=== PATIENT | male | born 1975 | race Caucasian/White ===

== ENCOUNTER → 2017-03-23 | Outpatient (CLI) | payer MEDICARE, OTHER ==
--- NOTE | 2017-03-23 11:52 | MR ---
EXAMINATION TYPE: MR sacroiliac joints wo con DATE OF EXAM: 03/23/2017 COMPARISON: CT abdomen and pelvis July 10, 2011 HISTORY: sacroiliitis per order, lower lumbar pain into right buttocks and thigh per patient. Standard multiplanar, multisequence MRI departmental protocol Multiplanar, multisequence images of the pelvis focusing on the sacroiliac joints were acquired. FINDINGS: Sacroiliac joints appear symmetric and felt within normal limits. There is no suspicious wi dening seen. There is no suspicious edema within or adjacent to the joints identified. Visualized osseous structures including sacrum are unremarkable. Visualized bladder is within normal limits. There is no suspicious bowel dilatation. There is no concerning pelvic fluid collection. Semi nal vesicles are unremarkable. Visualized portion of prostate is unremarkable. No concerning pelvic a denopathy is seen. IMPRESSION: Sacroiliac joints are within normal limits. Unremarkable study.
== END | disposition home or self-care (01) ==
LOC: RADMRIMAIN 10:46
PROVIDERS: ATTEND Internal Medicine Rheumatology
DX: M46.1 Sacroiliitis, not elsewhere classified (principal)
CPT/HCPCS: 72195

== ENCOUNTER → 2019-05-13 | Outpatient (CLI) | payer MEDICARE, OTHER ==
--- NOTE | 2019-05-13 11:59 | XR ---
EXAMINATION TYPE: XR chest 2V DATE OF EXAM: 05/13/2019 COMPARISON: NONE HISTORY: 10/07/2009 TECHNIQUE: Frontal and lateral views of the chest are obtained. FINDINGS: Slitlike atelectasis is seen within the left midlung and at the left costophrenic angle. Th is is new from the prior. There is no focal air space opacity, pleural effusion, or pneumothorax seen . There is prominence of the ascending thoracic aorta on the lateral view. The cardiac silhouette siz e is within normal limits. The osseous structures are intact. IMPRESSION: 1. New multifocal left midlung and costophrenic angle subsegmental atelectasis. No new focal consolid ation to suggest pneumonia. 2. Prominence of the ascending thoracic aorta could relate could be assessed with CTA thorax.
== END ==
LOC: PROCWHC3 11:26
PROVIDERS: ATTEND Family Medicine
DX: J98.11 Atelectasis (principal); J00 Acute nasopharyngitis [common cold]; R50.9 Fever, unspecified; R05 Cough
CPT/HCPCS: 71046; 87502

== ENCOUNTER → 2019-06-01 | Outpatient (CLI) | payer MEDICARE, OTHER ==
--- NOTE | 2019-06-01 10:03 | US ---
EXAMINATION TYPE: US kidneys/renal and bladder DATE OF EXAM: 06/01/2019 COMPARISON: NONE CLINICAL HISTORY: R31.29 MICROSCOPIC HEMATURIA. Microscopic hematuria, 1 episode right flank pain cou ple days ago, history of kidney stones. EXAM MEASUREMENTS: Right Kidney: 11.1 x 5.3 x 5.2 cm Left Kidney: 10.2 x 4.9 x 5.2 cm Right Kidney: no hydronephrosis or masses seen Left Kidney: no hydronephrosis or masses seen Bladder: not fully distended Bilateral Jets seen: no There is no evidence for hydronephrosis at this point in time. No nephrolithiasis is seen. No carolyn s are identified. The urinary bladder is anechoic. Bilateral ureteral jets are not seen. IMPRESSION: No hydronephrosis nor nephrolithiasis. Unremarkable renal ultrasound.
== END | disposition home or self-care (01) ==
LOC: RADUSWWP 09:31
PROVIDERS: ATTEND Family Medicine
DX: R31.29 Other microscopic hematuria (principal)
CPT/HCPCS: 76770

== ENCOUNTER → 2019-06-03 | Outpatient (CLI) | payer MEDICARE, OTHER ==
--- NOTE | 2019-06-03 15:39 | CT ---
CT CHEST FOR PULMONARY EMBOLISM. EXAMINATION TYPE: CT angio chest DATE OF EXAM: 06/03/2019 INDICATION: Abnormal cxr. CT DLP: 533.2 mGycm, Automated exposure control for dose reduction was used. CONTRAST: Patient injected with 100 mL of Isovue 370. COMPARISON: None TECHNIQUE: CT of the chest is performed on a spiral scan at 2 mm thick sections. Study is performed without and then with intravenous contrast. This will limit additional portions of the evaluation. 3-D MIP images reconstructed by the technologist are reviewed on the computer in the coronal and sagi ttal planes. FINDINGS: No persistent filling defects are evident to suggest an acute pulmonary embolism. No mediastinal or hilar adenopathy enlarged by CT criteria is evident. The ascending aorta diameter at the level of the main pulmonary artery is 3.2 cm. The main pulmonary artery diameter at the bifur cation is 2.7 cm. There is a 0.2 cm nodule within the lower right middle lobe. Series [address] section through the upper abdomen. There is mild fatty infiltration to the liver. IMPRESSIONS: 1. Punctate nodule right middle lobe. Follow-up exam in 3-6 months recommended.
== END | disposition home or self-care (01) ==
LOC: RADCTMAIN 09:45
PROVIDERS: ATTEND Family Medicine
DX: R91.1 Solitary pulmonary nodule (principal)
CPT/HCPCS: 71275; Q9967

== ENCOUNTER 2019-08-23 10:56 | Day surgery (SDC) | payer MEDICARE, OTHER ==
[2019-08-19 11:13] VITALS: BMI 25.5
[~2019-08-23 10:56] MED LIST: SODIUM CHLORIDE 0.9% 1,000 ML IV SCH
[2019-08-23 11:33] VITALS: RESP 16; TEMP 98.2
[2019-08-23 14:53] VITALS: BP 118/72; PULSE 60
--- NOTE | 2019-08-23 15:23 | P.PCN ---
Preoperative Diagnosis: Diagnosis: Presyncope Procedure: Tilt table test Baseline 12-lead EKG shows sinus mechanism, normal SC, narrow QRS, T wave inversions in inferior and lateral precordial leads normal QT interval, no delta Waves No Epsilon Waves Baseline blood pressure 116 over 73 mmHg, Baseline heart rate 77 bpm. Patient was tilted upright at a 70 angle as per protocol. Within the first 10 minutes of being tilted upright there is a rise in heart rate to the 100s. Heart rate remained elevated while the patient was upright, maximum heart rate 112 bpm, blood pressure remained stable throughout the procedure. The patient did not have any complaints besides being uncomfortable. No complaints of dizziness noted. At the end of the procedure the patient was laid flat. Impression Twelve-lead EKG showing T-wave inversions inferiorly and in the lateral precordial leads Postural orthostatic tachycardia syndrome No evidence for neurocardiogenic syncope
== END 2019-08-23 14:35 | disposition home or self-care (01) ==
LOC: CATHEP 10:56
PROVIDERS: ATTEND Internal Medicine Clinical Cardiac Electrophysiology
DX: I49.8 Other specified cardiac arrhythmias (principal); I10 Essential (primary) hypertension; F17.210 Nicotine dependence, cigarettes, uncomplicated; E78.5 Hyperlipidemia, unspecified; Z82.49 Family history of ischemic heart disease and other diseases of the circulatory system; Z79.899 Other long term (current) drug therapy; Z79.52 Long term (current) use of systemic steroids; E78.00 Pure hypercholesterolemia, unspecified
CPT/HCPCS: 93660

== ENCOUNTER → 2020-06-08 | Outpatient (CLI) | payer MEDICARE, OTHER ==
--- NOTE | 2020-06-08 11:21 | CT ---
EXAMINATION TYPE: CT chest wo con DATE OF EXAM: 06/08/2020 COMPARISON: 06/03/2019 HISTORY: Pulmonary nodule CT DLP: 267.[address] of the chest was performed with lung and mediastinal window settings submitted. The la ck of contrast limits evaluation of the vascular, mediastinal and parenchymal structures including th e upper abdomen. LUNGS: The lungs are clear and free of infiltrate. No atelectasis. 2 mm nodule lateral segment right middle lobe image 35 is unchanged. 2 mm nodule right upper lobe image 30 is also stable. Peripheral n odule right lower lobe posteriorly image 30 also unchanged. No pleural effusion. No CT evidence of i nterstitial lung disease. MEDIASTINUM/NARGIS: Thoracic aorta is of normal caliber with limited evaluation given lack of contrast . The heart is not enlarged. No evidence for mediastinal mass. No lymph nodes greater than 1cm. UPPER ABDOMEN: No significant abnormality is seen. OTHER: No significant other abnormality. IMPRESSION: 1. Stable tiny pulmonary nodularity identified. Stability over a two-year timeframe should be docume nted radiographically. Follow-up in one year is advised.
== END | disposition home or self-care (01) ==
LOC: RADCTMAIN 10:30
PROVIDERS: ATTEND Internal Medicine Pulmonary Disease
DX: R91.8 Other nonspecific abnormal finding of lung field (principal); J98.4 Other disorders of lung; Z72.0 Tobacco use
CPT/HCPCS: 71250

== ENCOUNTER 2023-10-15 06:51 | Day surgery (SDC) | payer MEDICARE, OTHER ==
[2023-10-14 10:19] VITALS: BMI 24.3
[2023-10-15] MEDS: LACTATED RINGERS 1,000 ML IV SCH (07:45)
[2023-10-15 07:49] LABS: Glucose,Whole Blood 146 mg/dL (70-110)
[2023-10-15 07:53] VITALS: TEMP 97.7
[2023-10-15] MEDS ORDERED: LIDOCAINE 2% (PF) 20 MG/ML 5 ML VIAL ONE (07:58)
[2023-10-15] MEDS ORDERED: PROPOFOL 10 MG/ML 20 ML VIAL IV ONE (07:58)
[2023-10-15] MEDS ORDERED: fentaNYL (PF) 50 MCG/ML 2 ML AMP ONE (07:58)
--- NOTE | 2023-10-15 08:02 | P.GSHP ---
History of Present Illness H&P Date: 10/15/23 Chief Complaint: GERD, history of colitis this is a 48-year-old male who has complaints of GERD. Patient also has history of Crohn's colitis. Patient presents today for colonoscopy EGD. Past Medical History Past Medical History: Diabetes Mellitus, GERD/Reflux, GI Bleed, Hyperlipidemia, Hypertension, Osteoarthritis (OA) Additional Past Medical History / Comment(s): See Dr Moss's H&P, SVT, hx COLITIS, RECTAL BLEEDING, hx. gout History of Any Multi-Drug Resistant Organisms: None Reported Past Surgical History: Hernia Repair, Tonsillectomy Additional Past Surgical History / Comment(s): colonoscopies, EGD Past Anesthesia/Blood Transfusion Reactions: Previous Problems w/ Anesthesia Additional Past Anesthesia/Blood Transfusion Reaction / Comment(s): states with last colonoscopy "heart rate dropped, and they had to beat on me to get it going". no blood transfusion Smoking Status: Current every day smoker - Past Family History Mother Family Medical History: Cancer Additional Family Medical History / Comment(s): vaginal Medications and Allergies Home Medications Medication Instructions Recorded Confirmed Type Dicyclomine [Bentyl] 10 mg PO BID 07/24/14 10/15/23 History Fluticasone Propionate [Flonase] 2 spray EA NOSTRIL BID PRN 07/24/14 10/15/23 History Omeprazole [PriLOSEC] 20 mg PO AC-BRKFST 07/24/14 10/15/23 History allopurinoL [Zyloprim] 300 mg PO DAILY 07/24/14 10/15/23 History Baclofen [Lioresal] 10 mg PO DAILY 08/19/19 10/15/23 History Cetirizine HCl [Zyrtec] 10 mg PO HS 08/19/19 10/15/23 History Famotidine [Pepcid] 20 mg PO HS 08/19/19 10/15/23 History Atorvastatin [Lipitor] 20 mg PO DAILY 10/14/23 10/15/23 History Empagliflozin [Jardiance] 25 mg PO DAILY 10/14/23 10/15/23 History Pioglitazone [Actos] 30 mg PO DAILY 10/14/23 10/15/23 History Allergies Allergy/AdvReac Type Severity Reaction Status Date / Time sulfamethoxazole AdvReac Rash/Hives Verified 10/15/23 07:32 [From Bactrim] trimethoprim [From Bactrim] AdvReac Rash/Hives Verified 10/15/23 07:32 Surgical - Exam Vital Signs Temp Pulse Resp BP Pulse Ox 97.7 F 89 16 172/79 96 10/15/23 07:38 10/15/23 07:38 10/15/23 07:38 10/15/23 07:38 10/15/23 07:38 - General well developed, well nourished, no distress - Eyes PERRL - ENT normal pinna - Neck no masses - Respiratory normal expansion - Cardiovascular Rhythm: regular - Abdomen Abdomen: soft, non tender - Rectum Rectum: normal sphincter tone - Integumentary no rash - Neurologic normal coordination Results - Labs Abnormal Lab Results - Last 24 Hours (Table) 10/15/23 Range/Units 07:42 POC Glucose (mg/dL) 146 H (70-110) mg/dL Assessment and Plan Plan: history of GERD and Crohn's disease. Patient will undergo EGD and colonoscopy.
--- NOTE | 2023-10-15 08:28 | P.OP ---
Date of Procedure: 10/15/23 Preoperative Diagnosis: GERD Colitis Postoperative Diagnosis: antral gastritis Proctitis Procedure(s) Performed: EGD Colonoscopy Anesthesia: MAC Surgeon: Gilberto Melo Pathology: other (antrum, esophagus, rectum) Condition: stable Disposition: PACU Description of Procedure: the patient's placed on the endoscopy table in the lateral position. He received IV sedation. The gastro-/oropharynx passed in the esophagus and stomach. Scope was then placed through the pylorus. The first and second port ion of the duodenum appeared normal. Scope was then brought back the antrum this. Mildly inflamed. A biopsies performed. Scope was then retroflexed and the remainder of the stomach appeared normal. The GE junction was at 40 cm. The distal esophagus appeared mildly inflamed. A biopsies performed. The proximal esophagus appeared normal. Scope was then withdrawn for patient. Next digital rectal exam was performed. This revealed no abnormalities. The prostate was symmetrical without nodules. The flexible colonoscope was then placed patient anus and passed throughout the entire colon. The ileocecal valve was visualized. The cecum, ascending and transverse colon appeared normal. The descending and sigmoid colon appeared normal. Scope was then brought back the rectum and there appeared to be some inflammation. His was biopsied. Aggarwal withdrawn for patient.
[2023-10-15 09:20] LABS: Glucose,Whole Blood 155 mg/dL (70-110)
[2023-10-15 09:26] VITALS: BP 123/89; PULSE 98; RESP 18
== END 2023-10-15 09:34 | disposition home or self-care (01) ==
LOC: ORWHC2ENDO 06:51
PROVIDERS: ATTEND Surgery
DX: K21.00 Gastro-esophageal reflux disease with esophagitis, without bleeding (principal); K51.20 Ulcerative (chronic) proctitis without complications; I10 Essential (primary) hypertension; E78.5 Hyperlipidemia, unspecified; E11.9 Type 2 diabetes mellitus without complications; M19.90 Unspecified osteoarthritis, unspecified site; M10.9 Gout, unspecified; F17.200 Nicotine dependence, unspecified, uncomplicated; Z79.84 Long term (current) use of oral hypoglycemic drugs; Z79.899 Other long term (current) drug therapy; Z88.2 Allergy status to sulfonamides; Z88.1 Allergy status to other antibiotic agents
CPT/HCPCS: 88305; 45380; 43239; J3010; J2704; J2001

== ENCOUNTER → 2024-01-18 | Outpatient (CLI) | payer MEDICARE, OTHER ==
[2024-01-18 19:53] LABS: Basophils # (A) 0.05 X 10*3/uL (0.00-0.10); Basophils % (A) 0.6 %; Eosinophils # (A) 0.15 X 10*3/uL (0.04-0.35); Eosinophils % (A) 1.9 %; HCT 51.9 % (39.6-50.0); HGB 17.1 g/dL (13.0-17.0); Lymphocytes # (A) 1.41 X 10*3/uL (0.90-5.00); Lymphocytes % (A) 17.8 %; MCHC 32.9 g/dL (32.0-37.0); MCV 85.1 FL (80.0-97.0); Mean Platelet Volume 11.5 FL (9.5-12.2); Monocytes # (A) 0.62 X 10*3/uL (0.20-1.00); Monocytes % (A) 7.8 %; NRBC Per 100 WBC 0 X 10*3/uL (0.00-0.01); Neutrophils # (A) 5.64 X 10*3/uL (1.80-7.70); Platelet Count 233 X 10*3/uL (140-440); RDW 15.9 % (11.5-14.5); WBC 7.94 X 10*3/uL (4.50-10.00)
[2024-01-18 20:21] LABS: % Iron Saturation 28.51 (15.00-50.00); ALT 27 U/L (10-49); AST 23 U/L (14-35); Albumin 4.9 g/dL (3.8-4.9); Albumin/Globulin Ratio 1.81 Ratio (1.60-3.17); Alkaline Phosphatase 88 U/L (41-126); BUN/Creat Ratio 21.33 Ratio (12.00-20.00); Blood Urea Nitrogen 19.2 mg/dL (9.0-27.0); Calcium 9.9 mg/dL (8.7-10.3); Carbon Dioxide 22.8 mmol/L (21.6-31.8); Chloride 102 mmol/L (96-109); Creatine Kinase 159 U/L (35-257); Ferritin 59.1 ng/mL (22.0-322.0); Globulin 2.7 g/dL (1.6-3.3); Glucose 113 mg/dL (70-110); Iron 126 UG/DL (65-175); Magnesium 2.2 mg/dL (1.5-2.4); Potassium 4.2 mmol/L (3.5-5.5); Rheumatoid Factor, Qnt <15 IU/mL (0-15); Sodium 139 mmol/L (135-145); Total Bilirubin 0.9 mg/dL (0.3-1.2); Total Iron Binding Capacity 442 UG/DL (228-460); Total Protein 7.6 g/dL (6.2-8.2); Uric Acid 2.8 mg/dL (3.7-8.7)
== END | disposition home or self-care (01) ==
LOC: LABWHC1 13:22
PROVIDERS: ATTEND Family Medicine
DX: I10 Essential (primary) hypertension (principal); E11.65 Type 2 diabetes mellitus with hyperglycemia; E78.2 Mixed hyperlipidemia; E55.9 Vitamin D deficiency, unspecified; R25.2 Cramp and spasm
CPT/HCPCS: 36415; 80053; 82043; 82306; 82550; 82570; 82607; 82728; 82746; 83036; 83540; 83550; 83735; 84443; 84550; 85025; 86038; 86431

== ENCOUNTER → 2024-04-14 | Outpatient (CLI) | payer MEDICARE, OTHER ==
[2024-04-14 16:33] LABS: WBC 7.67 X 10*3/uL (4.50-10.00)
[2024-04-14 16:34] LABS: Basophils # (A) 0.06 X 10*3/uL (0.00-0.10); Basophils % (A) 0.8 %; Eosinophils # (A) 0.18 X 10*3/uL (0.04-0.35); Eosinophils % (A) 2.3 %; HCT 50.8 % (39.6-50.0); HGB 16.5 g/dL (13.0-17.0); Lymphocytes # (A) 1.21 X 10*3/uL (0.90-5.00); Lymphocytes % (A) 15.8 %; MCH 27.8 pg (27.0-32.0); MCHC 32.5 g/dL (32.0-37.0); MCV 85.7 FL (80.0-97.0); Mean Platelet Volume 10.6 FL (9.5-12.2); Monocytes # (A) 0.75 X 10*3/uL (0.20-1.00); Monocytes % (A) 9.8 %; NRBC Per 100 WBC 0 X 10*3/uL (0.00-0.01); Neutrophils # (A) 5.38 X 10*3/uL (1.80-7.70); Neutrophils % (A) 70.1 %; Platelet Count 244 X 10*3/uL (140-440); RBC 5.93 X 10*6/uL (4.40-5.60); RDW 15.5 % (11.5-14.5)
[2024-04-14 17:01] LABS: % Iron Saturation 13.09 (15.00-50.00); ALT 38 U/L (10-49); AST 23 U/L (14-35); Albumin 4.6 g/dL (3.8-4.9); Albumin/Globulin Ratio 1.64 Ratio (1.60-3.17); Alkaline Phosphatase 86 U/L (41-126); Blood Urea Nitrogen 18.4 mg/dL (9.0-27.0); Carbon Dioxide 28.3 mmol/L (21.6-31.8); Chloride 103 mmol/L (96-109); Chol/HDL Ratio 5.42 Ratio; Ferritin 95.9 ng/mL (22.0-322.0); Globulin 2.8 g/dL (1.6-3.3); Glucose 107 mg/dL (70-110); Iron 53 UG/DL (65-175); LDL Cholesterol,Calculated 167.4 mg/dL (0.0-131.0); Potassium 4.8 mmol/L (3.5-5.5); Prostate Specific Antigen 0.68 ng/mL (0.000-3.500); Sodium 142 mmol/L (135-145); Total Bilirubin 0.4 mg/dL (0.3-1.2); Total Iron Binding Capacity 405 UG/DL (228-460); Total Protein 7.4 g/dL (6.2-8.2); Uric Acid 2.7 mg/dL (3.7-8.7)
[2024-04-14 23:31] LABS: Urine Creatinine 67.2 mg/dL (39.0-259.0)
== END | disposition home or self-care (01) ==
LOC: LABWHC1 10:16
PROVIDERS: ATTEND Family Medicine
CPT/HCPCS: 36415; 80053; 80061; 82043; 82306; 82570; 82607; 82728; 82746; 83036; 83540; 83550; 84153; 84443; 84550; 85025

== ENCOUNTER 2024-04-25 11:37 | Day surgery (SDC) | payer MEDICARE, OTHER ==
[2024-04-21 15:43] VITALS: BMI 25.0
[2024-04-25 12:03] VITALS: RESP 16; TEMP 97
[2024-04-25 12:13] LABS: Glucose,Whole Blood 102 mg/dL (70-110)
[2024-04-25] MEDS: IV FLUID CONTINUATION 1,000 ML IV ONE (12:16)
[2024-04-25] MEDS: LACTATED RINGERS 1,000 ML IV SCH (12:17)
[2024-04-25] MEDS ORDERED: PROPOFOL 10 MG/ML 20 ML VIAL IV ONE (12:38)
[2024-04-25] MEDS ORDERED: LIDOCAINE 1% INJ 10MG/ML (20 ML MDV) ONE (12:38)
[2024-04-25 13:05] VITALS: BP 114/79; PULSE 84
--- NOTE | 2024-04-25 13:14 | P.OP ---
Date of Procedure: 04/25/24 Preoperative Diagnosis: Gerd Postoperative Diagnosis: Antral gastritis Procedure(s) Performed: EGD Anesthesia: MAC Surgeon: Gilberto Melo Pathology: other (Antrum, esophagus) Condition: stable Disposition: PACU Description of Procedure: Patient is placed on the endoscopy table in the lateral position. He received IV sedation. The g scope was placed in the oropharynx passed in the esophagus and the stomach. Scope was placed with the pylorus. The first second portion duodenum appeared normal. Scope was brought back to the antrum this was minim mildly inflamed. A biopsy performed. Scope was retroflexed and there was no significant hiatal hernia. The GE junction was at 40 cm. The distal esophagus was mildly flayed. A biopsy performed. The proximal esophagus appeared normal. The scope withdrawn for the patient.
== END 2024-04-25 13:45 | disposition home or self-care (01) ==
LOC: ORWHC2ENDO 11:37
PROVIDERS: ATTEND Surgery
DX: K29.50 Unspecified chronic gastritis without bleeding (principal); K21.9 Gastro-esophageal reflux disease without esophagitis; I10 Essential (primary) hypertension; E78.5 Hyperlipidemia, unspecified; I47.10 Supraventricular tachycardia, unspecified; E11.9 Type 2 diabetes mellitus without complications; M19.90 Unspecified osteoarthritis, unspecified site; M10.9 Gout, unspecified; K52.9 Noninfective gastroenteritis and colitis, unspecified; F17.210 Nicotine dependence, cigarettes, uncomplicated; Z88.1 Allergy status to other antibiotic agents; Z88.6 Allergy status to analgesic agent; Z79.899 Other long term (current) drug therapy
CPT/HCPCS: 88305; 43239; J2003; J2704

== ENCOUNTER → 2024-10-14 | Outpatient (CLI) | payer MEDICARE, OTHER ==
[2024-10-14 18:41] LABS: Basophils # (A) 0.07 X 10*3/uL (0.00-0.10); Basophils % (A) 0.8 %; Eosinophils # (A) 0.26 X 10*3/uL (0.04-0.35); HCT 51.9 % (39.6-50.0); HGB 16.5 g/dL (13.0-17.0); Lymphocytes % (A) 18.7 %; MCH 27.9 pg (27.0-32.0); MCHC 31.8 g/dL (32.0-37.0); MCV 87.8 FL (80.0-97.0); Mean Platelet Volume 10.6 FL (9.5-12.2); Monocytes # (A) 0.78 X 10*3/uL (0.20-1.00); Monocytes % (A) 9.1 %; NRBC Per 100 WBC 0 X 10*3/uL (0.00-0.01); Neutrophils # (A) 5.72 X 10*3/uL (1.80-7.70); Neutrophils % (A) 66.8 %; Platelet Count 245 X 10*3/uL (140-440); RBC 5.91 X 10*6/uL (4.40-5.60); RDW 15.1 % (11.5-14.5); WBC 8.57 X 10*3/uL (4.50-10.00)
[2024-10-14 19:17] LABS: % Iron Saturation 30.57 (15.00-50.00); ALT 42 U/L (10-49); AST 20 U/L (14-35); Albumin 4.6 g/dL (3.8-4.9); Albumin/Globulin Ratio 1.77 Ratio (1.60-3.17); Alkaline Phosphatase 105 U/L (41-126); BUN/Creat Ratio 23.11 Ratio (12.00-20.00); Blood Urea Nitrogen 20.8 mg/dL (9.0-27.0); Calcium 9.8 mg/dL (8.7-10.3); Carbon Dioxide 26.7 mmol/L (21.6-31.8); Chloride 101 mmol/L (96-109); Chol/HDL Ratio 3.72 Ratio; Globulin 2.6 g/dL (1.6-3.3); Glucose 128 mg/dL (70-110); Iron 118 UG/DL (65-175); LDL Cholesterol,Calculated 92.7 mg/dL (0.0-131.0); Potassium 4.6 mmol/L (3.5-5.5); Sodium 140 mmol/L (135-145); Total Bilirubin 0.8 mg/dL (0.3-1.2); Total Iron Binding Capacity 386 UG/DL (228-460); Total Protein 7.2 g/dL (6.2-8.2); Uric Acid 3.2 mg/dL (3.7-8.7)
== END | disposition home or self-care (01) ==
LOC: LABWHC1 11:39
PROVIDERS: ATTEND Family Medicine
DX: I10 Essential (primary) hypertension (principal); E11.65 Type 2 diabetes mellitus with hyperglycemia; E78.2 Mixed hyperlipidemia; E55.9 Vitamin D deficiency, unspecified
CPT/HCPCS: 36415; 80053; 80061; 82306; 82607; 82728; 82746; 83036; 83540; 83550; 84443; 84550; 85025

== ENCOUNTER → 2024-10-15 | Outpatient (CLI) | payer MEDICARE, OTHER ==
[2024-10-16 12:10] LABS: Microalbumin Creatinine Ratio <8 mg/g Cr (0-30)
== END | disposition home or self-care (01) ==
LOC: LABWHC1 10:57
PROVIDERS: ATTEND Nurse Practitioner Gerontology
DX: I10 Essential (primary) hypertension (principal); E11.65 Type 2 diabetes mellitus with hyperglycemia; E55.9 Vitamin D deficiency, unspecified; E78.2 Mixed hyperlipidemia
CPT/HCPCS: 82043; 82570

== ENCOUNTER 2024-11-03 10:42 | Emergency (ER) | payer MEDICARE, OTHER ==
[2024-11-03 10:49] VITALS: RESP 20
--- NOTE | 2024-11-03 11:06 | ED ---
Wound/Laceration HPI - General Chief Complaint: Wound/Laceration Stated Complaint: Fall-L Knee Injury Time Seen by Provider: 11/03/24 10:55 Source: patient, RN notes reviewed Mode of arrival: ambulatory Limitations: no limitations - History of Present Illness Initial Comments: This is a 49-year-old male presenting for left knee injury following a fall o utdoors x 1 hour ago. Patient states he had a trip and fall, striking his left knee against a rock with subsequent laceration. Denies other injury, stating he could ambulate following the incident without significant pain or limp. States tetanus vaccination status is up-to-date. Denies use of blood thinners. Onset/Timin -: hour(s) Extremity Location: Left: Knee Place: outdoors Patient Tetanus UTD: Yes Context: accidental, fall Associated Symptoms: none - Related Data Home Medications Medication Instructions Recorded Confirmed Dicyclomine [Bentyl] 10 mg PO BID 07/24/14 04/21/24 Fluticasone Propionate [Flonase] 2 spray EA NOSTRIL BID PRN 07/24/14 04/21/24 Omeprazole [PriLOSEC] 20 mg PO AC-BRKFST 07/24/14 04/21/24 allopurinoL [Zyloprim] 300 mg PO DAILY 07/24/14 04/21/24 Cetirizine HCl [Zyrtec] 10 mg PO HS 08/19/19 04/21/24 Famotidine [Pepcid] 20 mg PO HS 08/19/19 04/21/24 Atorvastatin [Lipitor] 20 mg PO DAILY 10/14/23 04/21/24 Empagliflozin [Jardiance] 25 mg PO DAILY 10/14/23 04/21/24 Pioglitazone [Actos] 30 mg PO DAILY 10/14/23 04/21/24 Previous Rx's Medication Instructions Recorded Cephalexin [Keflex] 500 mg PO Q6HR 1 Days #20 cap 11/03/24 Allergies Allergy/AdvReac Type Severity Reaction Status Date / Time sulfamethoxazole Allergy Rash/Hives Verified 04/25/24 11:56 [From Bactrim] trimethoprim [From Bactrim] Allergy Rash/Hives Verified 04/25/24 11:56 NSAIDS (Non-Steroidal AdvReac GI bleed hx Verified 11/04/24 11:56 Anti-Inflamma Review of Systems ROS Statement: Those systems with pertinent positive or pertinent negative responses have been documented in the HPI. ROS Other: All systems not noted in ROS Statement are negative. Past Medical History Past Medical History: Diabetes Mellitus, GERD/Reflux, GI Bleed, Hyperlipidemia, Hypertension, Osteoarthritis (OA) Additional Past Medical History / Comment(s): generalized weakness,gastritis, SVT, hx COLITIS, RECTAL BLEEDING, hx. gout History of Any Multi-Drug Resistant Organisms: None Reported Past Surgical History: Hernia Repair, Tonsillectomy Additional Past Surgical History / Comment(s): colonoscopies, EGD Past Anesthesia/Blood Transfusion Reactions: Previous Problems w/ Anesthesia Additional Past Anesthesia/Blood Transfusion Reaction / Comment(s): states with 2019 colonoscopy "heart rate dropped, and they had to beat on me to get it going". no blood transfusion Past Psychological History: No Psychological Hx Reported Smoking Status: Current every day smoker - Past Family History Mother Family Medical History: Cancer Additional Family Medical History / Comment(s): vaginal General Exam Limitations: no limitations General appearance: alert, in no apparent distress Head exam: Present: atraumatic, normocephalic, normal inspection Eye exam: Present: normal appearance, PERRL, EOMI. Absent: scleral icterus, conjunctival injection, periorbital swelling ENT exam: Present: normal exam, mucous membranes moist Neck exam: Present: normal inspection. Absent: tenderness, meningismus, lymphadenopathy Respiratory exam: Present: normal lung sounds bilaterally. Absent: respiratory distress, wheezes, rales, rhonchi, stridor Cardiovascular Exam: Present: regular rate, normal rhythm, normal heart sounds. Absent: systolic murmur, diastolic murmur, rubs, gallop, clicks GI/Abdominal exam: Present: soft, normal bowel sounds. Absent: distended, tenderness, guarding, rebound, rigid Extremities exam: Present: full ROM, normal capillary refill, other (4 cm crescent-shaped avulsion overlying left patellar tendon without significant bleeding, erythema or obvious foreign body). Absent: tenderness, pedal edema, joint swelling, calf tenderness Back exam: Present: normal inspection Neurological exam: Present: alert, oriented X3, CN II-XII intact Psychiatric exam: Present: normal affect, normal mood Skin exam: Present: warm, dry, intact, normal color. Absent: rash Course Vital Signs 11/03/24 11/03/24 10:46 12:42 Temperature 98.2 F 98.0 F Pulse Rate 120 H 96 Respiratory 20 20 Rate Blood Pressure 127/94 118/72 O2 Sat by Pulse 98 99 Oximetry Procedures - Laceration Laceration #1 Consent Obtained: verbal consent Indication: laceration Site: lower extremity Size (cm): 4 Description: flap, avulsion, irregular, contaminated, foreign body Depth: simple, single layer Anesthetic Used: lidocaine 1% Anesthesia Technique: local infiltration Amount (mls): 6 Pre-repair: wound explored, irrigated extensively, foreign body removed, extensive debridement Size of Sutures: 5-0 Number of Sutures: 9 Technique: simple, interrupted Patient Tolerated Procedure: well, no complications Medical Decision Making - Medical Decision Making Was pt. sent in by a medical professional or institution (, PA, COMPRESSOR STATION ENGINEER CHIEF, urgent care, hospital, or fdc...) When possible be specific @ -No Did you speak to anyone other than the patient for history (EMS, parent, family, police, friend...)? What history was obtained from this source @ -No Did you review nursing and triage notes (agree or disagree)? Why? @ -I reviewed and agree with nursing and triage notes Were old charts reviewed (outside hosp., previous admission, EMS record, old EKG, old radiological studies, urgent care reports/EKG's, fdc records)? Report findings @ -No old charts were reviewed Differential Diagnosis (chest pain, altered mental status, abdominal pain women, abdominal pain men, vaginal bleeding, weakness, fever, dyspnea, syncope, h eadache, dizziness, GI bleed, back pain, seizure, CVA, palpatations, mental health, musculoskeletal)? @ -Differential Musculoskeletal Muscular strain, contusion, ligament sprain, fracture, arthritis, septic arthritis, bursitis, cellulitis, muscle spasm, nerve compression, DVT, arterial occlusion, herpes zoster, electrolyte abnormality, tumor.... This is not meant to be in all inclusive list EKG interpreted by me (3pts min.). @ -Not done X-rays interpreted by me (1pt min.). @ -None done CT interpreted by me (1pt min.). @ -None done U/S interpreted by me (1pt. min.). @ -None done What testing was considered but not performed or refused? (CT, X-rays, U/S, labs)? Why? @ -None What meds were considered but not given or refused? Why? @ -None Did you discuss the management of the patient with other professionals (professionals i.e. , PA, COMPRESSOR STATION ENGINEER CHIEF, lab, RT, psych nurse, clinical social work aide, inspector bullet slugs, teacher, unclaimed property officer, correctional casework specialist)? Give summary @ -No Was smoking cessation discussed for >3mins.? @ -No Was critical care preformed (if so, how long)? @ -No Were there social determinants of health that impacted care today? How? (Homelessness, low income, unemployed, alcoholism, drug addiction, tr ansportation, low edu. Level, literacy, decrease access to med. care, [facility], rehab)? @ -No Was there de-escalation of care discussed even if they declined (Discuss DNR or withdrawal of care, Hospice)? DNR status @ -No What co-morbidities impacted this encounter? (DM, HTN, Smoking, COPD, CAD, Cancer, CVA, ARF, Chemo, Hep., AIDS, mental health diagnosis, sleep apnea, morbid obesity)? @ -None Was patient admitted / discharged? Hospital course, mention meds given and route, prescriptions, significant lab abnormalities, going to OR and other pertinent info. @ -Left knee laceration debrided, irrigated copiously and cleared of leaf material prior to suturing under sterile conditions. Patient provided initial dose of p.o. Keflex with remaining regimen sent to patient's pharmacy. Instructed of suture care and advised follow-up for removal in 14 days. Discussed patient with Dr. Ferrer. Undiagnosed new problem with uncertain prognosis? @ -No Drug Therapy requiring intensive monitoring for toxicity (Heparin, Nitro, Insulin, Cardizem)? @ -No Were any procedures done? @ -Laceration/avulsion sutured under sterile conditions. See procedure note Diagnosis/symptom? @ -Left knee laceration/avulsion Acute, or Chronic, or Acute on Chronic? @ -Acute Uncomplicated (without systemic symptoms) or Complicated (systemic symptoms)? @ -Uncomplicated Side effects of treatment? @ -No Exacerbation, Progression, or Severe Exacerbation? @ -No Poses a threat to life or bodily function? How? (Chest pain, USA, MS, pneumonia, PE, COPD, DKA, ARF, appy, cholecystitis, CVA, Diverticulitis, Homicidal, Suicidal, threat to staff... and all critical care pts) @ -No Disposition Clinical Impression: Laceration Disposition: HOME SELF-CARE Condition: Good Instructions (If sedation given, give patient instructions): Care For Your Stitches (ED) Additional Instructions: Keep suture site clean with antibacterial soap and water at least twice daily along with dressing change. Follow-up with any medical facility in 1014 days for suture removal. Prescriptions: Cephalexin [Keflex] 500 mg PO Q6HR 1 Days #20 cap Is patient prescribed a controlled substance at d/c from ED?: No Referrals: Betzy Caceres MD [Primary Care Provider] - 1-2 days Time of Disposition: 12:36
[2024-11-03] MEDS: LIDOCAINE 1% INJ 10MG/ML (20 ML MDV) SQ ONE (11:09)
[2024-11-03] MEDS: CEPHALEXIN 500 MG CAP PO STA (11:09)
[2024-11-03 12:43] VITALS: BP 118/72; PULSE 96; TEMP 98
== END 2024-11-03 12:48 | disposition home or self-care (01) ==
LOC: EC 10:42
DX: S81.012A Laceration without foreign body, left knee, initial encounter (principal); F17.200 Nicotine dependence, unspecified, uncomplicated; Z88.2 Allergy status to sulfonamides; Z88.1 Allergy status to other antibiotic agents; Z88.6 Allergy status to analgesic agent; W01.0XXA Fall on same level from slipping, tripping and stumbling without subsequent striking against object, initial encounter
CPT/HCPCS: 99282; 12002; J2003